=== PATIENT | female | born 1970 | race Caucasian/White ===

== ENCOUNTER 2017-09-12 04:26 | Emergency (ER) | payer OTHER, SELFPAY ==
[2017-09-12 04:42] VITALS: BP 160/81; PULSE 74; RESP 16; TEMP 36.6; O2SAT 98; BMI 26.6
[2017-09-12 04:50] LABS: RBC Urine 5-10/HPF (0-5/HPF); Squamous Epithelial Cell Urine 1-5 /HPF; WBC Urine 0-1/HPF (0-5/HPF)
[2017-09-12 04:51] LABS: Bacteria Urine Moderate (10-30)
[2017-09-12 04:53] LABS: Culture Indicated Urine Specimen Cultured
--- NOTE | 2017-09-12 05:08 | DI.CT.S_ITS ---
PROCEDURE: CT KIDNEY URETER BLADDER (KUB) INDICATIONS: left flank pain TECHNIQUE: Noncontrast 5 mm thick sections acquired from the diaphragms to the symphysis. 5 mm thick coronal and sagittal reformats were then performed. For radiation dose reduction, the following was used: automated exposure control, adjustment of mA and/or kV according to patient size. COMPARISON: None. FINDINGS: Image quality: Excellent. Lung bases: Lung bases are clear. Heart size is normal. Urinary system: The kidneys are normal in size. No right hydronephrosis. There is mild left hydronephrosis and left hydroureter with periureteral fat stranding. No perinephric fat stranding. No right hydroureter or ureterolithiasis. There is a 4 mm diameter calculus at the left ureterovesicular junction (series 2, image 80). The bladder is decompressed. No bladder calculi. Both ureters appear non-dilated throughout their expected courses. Bladder wall thickness is normal; no calcified bladder stones. Other solid organs: Liver is normal in size. An intermediate density 1.8 cm in diameter stone or sludge ball is present within the gallbladder fundus. No gallbladder wall thickening or pericholecystic fluid. Pancreas is normal in contours. Spleen is normal in size. No adrenal nodules. Peritoneum and bowel: Unenhanced bowel loops demonstrate normal wall thickness and caliber. No free fluid or air. Nodes and vessels: No retroperitoneal or mesenteric adenopathy by size criteria. Aorta and inferior vena cava are normal in caliber. Abdominal wall: No ventral hernias. Pelvis: No free pelvic fluid. No inguinal hernias or adenopathy. Bones: No suspicious bony lesions. No vertebral body compression fractures. IMPRESSION: 1. Obstructive left ureterolithiasis with mild left hydronephrosis and hydroureter. No perinephric fat stranding to suggest calyceal rupture. These findings are concordant with the overnight interpretation. Dictated by: Emi Shearer M.D. on 09/12/2017 at 8:01 Approved by: Emi Shearer M.D. on 09/12/2017 at 8:13
[2017-09-12] MEDS: KETOROLAC 60 MG/2 ML VIAL 30 MG IV (05:14)
[2017-09-12] MEDS: ONDANSETRON 4 MG/2 ML INJ IV (05:14)
[2017-09-12 05:17] LABS: Add Manual Diff / Slide Review NO; Basophils Percent Auto 0.3 % (0-2); Eosinophils Percent Auto 0.9 % (2-4); Hematocrit 46.8 % (36-46); Hemoglobin 16.1 g/dL (12.0-16.0); Lymphocytes Percent Auto 11.2 % (25-40); Mean Corpuscular HGB Conc 34.5 % (30-36); Mean Corpuscular Hemoglobin 29.8 PG (26-34); Mean Corpuscular Volume 86.4 fL (80-100); Monocytes Percent Auto 3.9 % (3-14); Neutrophils Absolute Auto 8500 /uL (3000-5900); Neutrophils Percent Auto 83.7 % (50-75); Platelet Count 199 X10^3/uL (150-400); Red Blood Cell Count 5.42 X10^6/uL (4.0-5.2); Red Cell Distribution Width 12.6 % (11.6-14.8); White Blood Cell Count 10.1 X10^3/uL (4.5-11.0)
[2017-09-12 05:21] LABS: Alanine Aminotransferase 28 IU/L (9-52); Albumin 4.7 g/dL (3.5-5.0); Alkaline Phosphatase 61 U/L (38-126); Aspartate Aminotransferase 20 IU/L (14-36); BUN Creatinine Ratio 12.5 (6-22); Bilirubin Total 0.7 mg/dL (0.2-1.3); Blood Urea Nitrogen 10 mg/dL (7-17); Calcium 9.8 mg/dL (8.4-10.2); Carbon Dioxide 31 mmol/L (22-32); Chloride 101 mmol/L (98-107); Estimated Glomerular Filt Rate > 60.0 mL/min (>60); Globulin 2.3 g/dL (1.7-4.1); Glucose 126 mg/dL (70-100); HEMOLYSIS < 15 (0-50); Lipase 77 U/L (23-300); Potassium 3.9 mmol/L (3.4-5.1); Sodium 143 mmol/L (137-145)
--- NOTE | 2017-09-12 05:43 | ED.ABDPAIN ---
HPI - Abdominal Pain General Chief Complaint: Abdominal Pain Stated Complaint: LEFT LOWER SIDE PAIN Time Seen by Provider: 09/12/17 04:59 Source: patient Mode of arrival: ambulatory Limitations: no limitations History of Present Illness HPI narrative: Patient is a 47-year-old female who presents with left lower quadrant pain. She says it is radiating around to the back and has been there for the last 1 day. She had an episode of vomiting before she came in but nothing prior. She overall has felt well. She has no painful or frequent urination. She denies any flank pain. She also denies any blood in her urine. MD complaint: abdominal pain Related Data Previous Rx's Medication Instructions Recorded ondansetron HCl [Zofran] 4 mg PO Q6-8H PRN #10 tab 09/12/17 sulfamethoxazole-trimethoprim 1 tab PO BID 5 Days #10 tab 09/12/17 [Bactrim DS] Allergies Allergy/AdvReac Type Severity Reaction Status Date / Time meclizine Allergy Mild Dizziness Verified 09/12/17 05:21 Review of Systems Review of Systems All systems reviewed & are unremarkable except as noted in HPI and below Constitutional Denies chills, Denies fever(s), Denies lethargy and Denies weakness Cardiovascular Denies chest pain, Denies irregular heart rhythm, Denies lightheadedness, Denies palpitations, Denies dyspnea, Denies dyspnea on exertion and Denies orthopnea Respiratory Denies cough, Denies dyspnea, Denies dyspnea on exertion and Denies wheezing Gastrointestinal Gastrointestinal: Reports as per HPI Genitourinary Denies hematuria, Denies flank pain, Denies urinary incontinence and Denies urinary urgency Musculoskeletal Denies back pain, Denies muscle weakness, Denies numbness and Denies tingling Integumentary/Breasts Denies pruritus, Denies erythema, Denies rash and Denies wounds Neurologic Denies numbness, Denies tingling and Denies weakness Endocrine Denies palpitations Allergic/Immunologic Denies wheezing [facility] Medical History Healthy adult (Acute) Surgical History Status post appendectomy Social History Smoking Status: Never smoker alcohol intake: never substance use type: does not use Exam Initial Vital Signs Initial Vital Signs: Vital Signs Temperature 97.9 F 09/12/17 04:42 Pulse Rate 74 09/12/17 04:42 Respiratory Rate 16 09/12/17 04:42 Blood Pressure 160/81 H 07/28/18 04:42 Pulse Oximetry 98 09/12/17 04:42 Const General: cooperative and well developed Nutritional Appearance: well nourished Orientation: alert, awake, oriented x3 and not confused Neck Neck: normal visual inspection and full ROM Chest Chest: normal inspection of the chest Resp Effort & Inspection: normal respiratory effort Auscultation: clear to auscultation bilaterally, no crackles, no rhonchi and no wheezes Cardio Rate: regular rate Rhythm: regular rhythm and abnormal rhythm Heart Sounds: S1 normal and S2 normal GI Inspection: normal to inspection Palpation: soft and tender (Left lower quadrant without guarding or rebound) General: No CVA tenderness Skin General: no rashes or lesions noted, No erythema, No jaundice, No pallor and warm Neuro General: alert, awake, oriented x3 and CN's II-XI intact bilaterally Course Orders Ordered: ED Orders 09/12/17 04:45 Urine Culture Stat Urine Microscopic Stat 09/12/17 04:50 Complete Blood Count AUTO DIFF Stat Comprehensive Metabolic Panel Stat Lipase Stat 09/12/17 05:08 CT kidney ureter bladder (KUB) Stat Discontinued Medications Ketorolac Tromethamine (Toradol) 30 mg IV NOW ONE Stop: 09/12/17 05:09 Last Admin: 09/12/17 05:14 Dose: 30 mg Ondansetron HCl (Zofran) 4 mg IV NOW ONE Stop: 09/12/17 05:09 Last Admin: 09/12/17 05:14 Dose: 4 mg Ondansetron HCl (Zofran Odt Prepack) 1 bottle MISC SEEINSTR ONE Stop: 09/12/17 06:03 Last Admin: 09/12/17 06:16 Dose: 1 bottle Trimethoprim/Sulfamethoxazole (Bactrim Ds Prepack) 1 bottle MISC SEEINSTR ONE Stop: 09/12/17 06:03 Last Admin: 09/12/17 06:16 Dose: 1 bottle Vital Signs - 8 hr 09/12/17 04:42 09/12/17 06:24 Temperature 97.9 F Pulse Rate 74 77 Respiratory Rate 16 16 Blood Pressure 160/81 H Blood Pressure [Right Arm] 127/85 H Pulse Oximetry 98 97 MDM - Abdominal Pain Lab Data Attestation: I reviewed the patient's lab results. Result diagrams: 09/12/17 04:50 09/12/17 04:50 Lab Results 09/12/17 09/12/17 09/12/17 Range/Units 04:45 04:50 04:50 WBC 10.1 (4.5-11.0) X10^3/uL RBC 5.42 H (4.0-5.2) X10^6/uL Hgb 16.1 H (12.0-16.0) g/dL Hct 46.8 H (36-46) % MCV 86.4 (80-100) fL MCH 29.8 (26-34) PG MCHC 34.5 (30-36) % RDW 12.6 (11.6-14.8) % Plt Count 199 (150-400) X10^3/uL Neut % (Auto) 83.7 H (50-75) % Lymph % (Auto) 11.2 L (25-40) % [place] % (Auto) 3.9 (3-14) % Eos % (Auto) 0.9 L (2-4) % Baso % (Auto) 0.3 (0-2) % Neut # (Auto) 8500 H (4846-8572) /uL Sodium 143 (137-145) mmol/L Potassium 3.9 (3.4-5.1) mmol/L Chloride 101 (98-107) mmol/L Carbon Dioxide 31 (22-32) mmol/L BUN 10 (7-17) mg/dL Creatinine 0.80 (0.52-1.04) mg/dL Estimated GFR > 60.0 (>60) mL/min BUN/Creatinine Ratio 12.5 (6-22) Glucose 126 H (70-100) mg/dL Calcium 9.8 (8.4-10.2) mg/dL Total Bilirubin 0.7 (0.2-1.3) mg/dL AST 20 (14-36) IU/L ALT 28 (9-52) IU/L Alkaline Phosphatase 61 (38-126) U/L Total Protein 7.0 (6.3-8.2) g/dL Albumin 4.7 (3.5-5.0) g/dL Globulin 2.3 (1.7-4.1) g/dL Albumin/Globulin Ratio 2.0 (1.0-2.8) Lipase 77 (23-300) U/L Urine RBC 5-10/hpf H (0-5/HPF) Urine WBC 0-1/hpf (0-5/HPF) Ur Squamous Epith Cells 1-5 /hpf Urine Bacteria Moderate (10-30) H (None) Ur Culture Indicated? Specimen cultured Micro UA Comment . Point of care testing: Urine Dip Bedside Urine Glucose Negative Bedside Urine Bilirubin - Negative Bedside Urine Ketone - Negative Urine Specific [place] 1.030 Bedside Urine Occult Blood +++ Bedside Urine pH 6.0 Bedside Urine Protein + 30 Bedside Urine Urobilinogen - Negative Bedside Urine Nitrite - Negative Bedside Urine Leukocytes - Negative Esterase Imaging Data CT scan - abdomen: Radiologist's impression: hospice/home health aide report: Approximately 2-3 mm calculus noted within the distal left UVJ contributing to mild proximal left hydronephrosis. Left renal edema. Discharge Plan Departure Patient Disposition: Home, Self-Care Clinical Impression: Kidney stones Discharge Date/Time: 09/12/17 06:28 Interventions: ED Discharge Assessment Last Done: 09/12/17 06:25 Instructions: DI for Kidney Stones Activity Restrictions/Additional Instructions: *Increase fluid intake *Call primary care physician's office on Thursday to schedule follow-up appointment may need urology referral Strain urine, try to catch stone -If you should have fever, or pain is uncontrolled with medication at home or any other concerning symptoms return to ER for further evaluation MEDICATIONS: Prescriptions faxed to [facility] Take Motrin/ibuprofen/Advil 600 mg every 6-8 hours as needed for pain Take Zofran every 6-8 hours if needed for nausea Take Bactrim 1 pill twice a day for 5 days for infection Prescriptions: New ondansetron HCl [Zofran] 4 mg tablet 4 mg PO Q6-8H PRN (Reason: nausea and vomiting) Qty: 10 RF: 0 sulfamethoxazole-trimethoprim [Bactrim DS] 800-160 mg tablet 1 tab PO BID 5 Days Qty: 10 RF: 0
--- NOTE | 2017-09-12 06:01 | PC.NURSE ---
pt provided hat, filter and specimen cup and instructed on use.
[2017-09-12] MEDS: ONDANSETRON 4 MG ODT PREPACK 1 BOTTLE MISC (06:16)
[2017-09-12] MEDS: SULFA/TRIMETH 800/160 PREPACK 1 BOTTLE MISC (06:16)
[2017-09-12 06:24] VITALS: BP 127/85; PULSE 77; RESP 16; O2SAT 97
== END 2017-09-12 06:28 | disposition home or self-care (01) ==
PROVIDERS: Emergency Provider Emergency Medicine
DX: N20.0 Calculus of kidney (principal)
CPT/HCPCS: 36591; 74176; 80053; 81003; 81015; 83690; 85025; 87086; 96374; 96375; 99282; 99284; J1885; J2405

== ENCOUNTER → 2023-01-05 15:09 | Outpatient (CLI) | payer OTHER, SELFPAY ==
--- NOTE | 2023-01-05 | DI.CT.S_ITS ---
PROCEDURE: CT SOFT TISSUE NECK W CON INDICATIONS: Sialoadenitis, unspecified TECHNIQUE: After the administration of intravenous contrast, 3.0 mm axial sections acquired from the sella to the aortic arch. Additional oblique axial 3.0 mm sections acquired through the pharynx. 3 mm thick coronal and sagittal reformats were generated. For radiation dose reduction, the following was used: automated exposure control. COMPARISON: None. FINDINGS: Image quality: Excellent. Lymph nodes: No enlarged lymph nodes seen throughout the neck. Vessels: Visualized vasculature appears patent. Neck spaces: The oropharynx, nasopharynx, and pharynx demonstrate no mucosal lesions. The vocal cords, false vocal cords, pyriform sinuses, epiglottis, vallecula, and tongue base all appear normal. Extramucosal spaces appear unremarkable. Glands: The parotid and submandibular glands appear normal. Thyroid gland is unremarkable. Miscellaneous: Visualized brain and orbits appear normal. Lung apices appear clear. Superficial soft tissues appear normal. Bones: No suspicious bony lesions. Right-sided craniotomy changes are partially visualized. Mild degenerative changes of the cervical spine. Mucous retention cysts within the bilateral maxillary sinuses. The mastoids appear unremarkable. IMPRESSION: No evidence of sialoadenitis. No acute findings within the neck. Dictated by: Donte Wild M.D. on 01/05/2023 at 16:07 Approved by: Donte Wild M.D. on 01/05/2023 at 16:12
== END ==
PROVIDERS: Family Provider Emergency Medicine; PCP Physician Assistant Medical; Referring Provider Physician Assistant Medical; Visit Provider Physician Assistant Medical
DX: K11.20 Sialoadenitis, unspecified (principal)
CPT/HCPCS: 70491; Q9967